=== PATIENT | male | born 1945 | race Two or more races ===

== ENCOUNTER 2021-11-27 08:08 | Outpatient (CLI) | payer OTHER ==
[~2021-11-27 08:08] MED LIST: ADVAIR 2501 DISK W/1 IH; AMARYL; ASMANEX0.24 G1 IH; AVANDIA4 MG PO; LANTUS100 U/ML SQ; LISINOPRIL10 MG; NEURONTIN300 MG; SINGULAIR 10MG10 MG PO; ZANTAC300 MG; [UNRECOGNIZED DRUG - OTHER] PO
== END 2021-11-27 08:13 | disposition home or self-care (01) ==
LOC: RX STUDY 08:08
PROVIDERS: ATTEND Internal Medicine Gastroenterology
DX: R10.13 Epigastric pain (principal)